=== PATIENT | female | born 1990 | race Caucasian/White ===

== ENCOUNTER 2018-02-26 13:28 | Emergency (ER) | payer OTHER ==
[~2018-02-26] VITALS: Ht 160 cm; Wt 63.5 kg
[2018-02-26 13:38] VITALS: Ht 160 cm; Wt 63.5 kg
[2018-02-26 14:24] LABS: BASOPHIL % 0.7 % (0-2); PLATELET COUNT 380 x10^3mcL (130-400)
[2018-02-26 14:25] LABS: RED CELL DISTRIBUTION WIDTH 18.6 % (11.5-14.5)
[2018-02-26 14:44] LABS: ALBUMIN 4.8 g/dL (3.4-5.0); ALKALINE PHOSPHATASE 64 U/L (46-116); ALT/SGPT 16 U/L (14-59); AST/SGOT 14 U/L (15-37); BILIRUBIN TOTAL 0.3 mg/dL (0.20-1.00); CALCIUM 9.2 mg/dL (8.5-10.1); CARBON DIOXIDE 26.6 mmol/L (21-32); CHLORIDE SERUM 103 mmol/L (98-107); CREATININE SERUM 0.7 mg/dL (0.6-1.0); GFR1 > 60 mL/min; GLUCOSE SERUM 80 mg/dL (74-106); LIPASE 133 IU/L (73-393); POTASSIUM SERUM 3.8 mmol/L (3.5-5.1); SODIUM SERUM 138 mmol/L (136-145)
[2018-02-26 14:47] LABS: UA SPECIFIC GRAVITY 1.025 (1.005-1.035); microscopic required? YES; urine erythrocyte NEGATIVE (NEGATIVE)
[2018-02-26 14:49] LABS: TOTAL PROTEIN, SERUM 8.7 g/dL (6.4-8.2)
[2018-02-26 16:02] VITALS: BP 129/86
== END 2018-02-26 16:02 | disposition home or self-care (01) ==
LOC: ED 13:28
PROVIDERS: Emergency Medicine
DX: K80.20 Calculus of gallbladder without cholecystitis without obstruction (principal); F17.210 Nicotine dependence, cigarettes, uncomplicated; I10 Essential (primary) hypertension; Z90.89 Acquired absence of other organs; Z71.6 Tobacco abuse counseling; Z98.890 Other specified postprocedural states
CPT/HCPCS: 99406; J2270; J2405

== ENCOUNTER 2018-03-07 19:03 | Emergency (ER) | payer OTHER ==
[~2018-03-07] VITALS: Ht 160 cm; Wt 64.9 kg
[2018-03-07 21:50] VITALS: BP 133/97
== END 2018-03-07 21:50 | disposition home or self-care (01) ==
LOC: ED 19:03
DX: K21.9 Gastro-esophageal reflux disease without esophagitis (principal); K80.50 Calculus of bile duct without cholangitis or cholecystitis without obstruction; I10 Essential (primary) hypertension; Z71.6 Tobacco abuse counseling; Z90.89 Acquired absence of other organs; Z98.890 Other specified postprocedural states
CPT/HCPCS: 99406; J3010; Q0162

== ENCOUNTER 2018-04-04 09:22 | Day surgery (SDC) | payer OTHER ==
[~2018-04-04] VITALS: Ht 160 cm; Wt 64.9 kg
[2018-04-04 09:53] VITALS: BP 131/81
[2018-04-04 16:27] VITALS: BP 135/87
== END 2018-04-04 16:20 | disposition home or self-care (01) ==
LOC: DS 09:22
DX: K80.10 Calculus of gallbladder with chronic cholecystitis without obstruction (principal); I10 Essential (primary) hypertension; E78.5 Hyperlipidemia, unspecified; F17.210 Nicotine dependence, cigarettes, uncomplicated; Z90.49 Acquired absence of other specified parts of digestive tract; Z98.890 Other specified postprocedural states; E05.80 Other thyrotoxicosis without thyrotoxic crisis or storm; Z79.82 Long term (current) use of aspirin; Z79.899 Other long term (current) drug therapy
CPT/HCPCS: J0330; J0690; J1170; J2250; J2405; J2704; J2710; J3010; J3490; J7030; J7120

== ENCOUNTER 2018-04-06 13:12 | Emergency (ER) | payer OTHER ==
[~2018-04-06] VITALS: Ht 160 cm; Wt 65.3 kg
[2018-04-06 13:24] VITALS: Ht 160 cm; Wt 65.3 kg
[2018-04-06 14:50] LABS: BASOPHIL % 0.2 % (0-2); PLATELET COUNT 370 x10^3mcL (130-400)
[2018-04-06 14:51] LABS: RED CELL DISTRIBUTION WIDTH 19.7 % (11.5-14.5)
[2018-04-06 15:00] LABS: microscopic required? NO
[2018-04-06 15:18] LABS: urine erythrocyte NEGATIVE (NEGATIVE)
[2018-04-06 15:19] LABS: ALBUMIN 3.7 g/dL (3.4-5.0); ALKALINE PHOSPHATASE 76 U/L (46-116); ALT/SGPT 179 U/L (14-59); AST/SGOT 134 U/L (15-37); BILIRUBIN TOTAL 0.2 mg/dL (0.20-1.00); CARBON DIOXIDE 29.1 mmol/L (21-32); CHLORIDE SERUM 102 mmol/L (98-107); CREATININE SERUM 0.6 mg/dL (0.6-1.0); GFR1 > 60 mL/min; GLUCOSE SERUM 98 mg/dL (74-106); LIPASE 62 IU/L (73-393); POTASSIUM SERUM 3.6 mmol/L (3.5-5.1); SODIUM SERUM 139 mmol/L (136-145); TOTAL PROTEIN, SERUM 7.7 g/dL (6.4-8.2)
[2018-04-06 15:31] LABS: CALCIUM 8.8 mg/dL (8.5-10.1)
[2018-04-06 16:33] VITALS: BP 120/82
== END 2018-04-06 16:33 | disposition home or self-care (01) ==
LOC: ED 13:12
PROVIDERS: Emergency Medicine
DX: G89.18 Other acute postprocedural pain (principal); I10 Essential (primary) hypertension; Z90.49 Acquired absence of other specified parts of digestive tract; Z90.89 Acquired absence of other organs; Z98.890 Other specified postprocedural states
CPT/HCPCS: J2270; J2405; J7030; Q0092

== ENCOUNTER 2018-04-30 20:41 | Emergency (ER) | payer OTHER ==
[~2018-04-30] VITALS: Ht 160 cm; Wt 64.0 kg
[2018-04-30 21:08] VITALS: Ht 160 cm; Wt 64.0 kg
[2018-05-01 00:49] LABS: CALCIUM 8.5 mg/dL (8.5-10.1); CHLORIDE SERUM 103 mmol/L (98-107); CREATININE SERUM 0.7 mg/dL (0.6-1.0); GFR1 > 60 mL/min; GLUCOSE SERUM 94 mg/dL (74-106); POTASSIUM SERUM 3.9 mmol/L (3.5-5.1); SODIUM SERUM 138 mmol/L (136-145)
[2018-05-01 00:53] LABS: ALKALINE PHOSPHATASE 71 U/L (46-116); ALT/SGPT 15 U/L (14-59); AMYLASE 47 U/L (25-115); AST/SGOT 13 U/L (15-37); BILIRUBIN TOTAL 0.17 mg/dL (0.20-1.00); LIPASE 224 IU/L (73-393); TOTAL PROTEIN, SERUM 8.1 g/dL (6.4-8.2)
[2018-05-01 00:57] LABS: BASOPHIL % 0.2 % (0-2)
[2018-05-01 00:59] LABS: PLATELET COUNT 522 x10^3mcL (130-400); RED CELL DISTRIBUTION WIDTH 19.1 % (11.5-14.5)
[2018-05-01 03:42] VITALS: BP 162/91
== END 2018-05-01 03:42 | disposition home or self-care (01) ==
LOC: ED 20:41
PROVIDERS: Emergency Medicine
DX: K42.9 Umbilical hernia without obstruction or gangrene (principal); D50.9 Iron deficiency anemia, unspecified; K21.9 Gastro-esophageal reflux disease without esophagitis; I10 Essential (primary) hypertension; Z90.89 Acquired absence of other organs; Z90.49 Acquired absence of other specified parts of digestive tract; Z98.890 Other specified postprocedural states
CPT/HCPCS: J1885; J2405; J3010; J7030

== ENCOUNTER 2018-08-19 19:51 | Emergency (ER) | payer OTHER ==
[~2018-08-19] VITALS: Ht 160 cm; Wt 62.6 kg
[2018-08-19 20:13] VITALS: Ht 160 cm; Wt 62.6 kg
[2018-08-19 21:19] LABS: PLATELET COUNT 382 x10^3mcL (130-400)
[2018-08-19 21:22] LABS: RED CELL DISTRIBUTION WIDTH 18.2 % (11.5-14.5)
[2018-08-19 21:26] LABS: CARBON DIOXIDE 23.7 mmol/L (21-32); CHLORIDE SERUM 101 mmol/L (98-107); CREATININE SERUM 0.7 mg/dL (0.6-1.0); GFR1 > 60 mL/min; GLUCOSE SERUM 106 mg/dL (74-106); POTASSIUM SERUM 3.6 mmol/L (3.5-5.1); SODIUM SERUM 138 mmol/L (136-145)
[2018-08-19 21:30] LABS: ALBUMIN 4.9 g/dL (3.4-5.0); ALKALINE PHOSPHATASE 67 U/L (46-116); ALT/SGPT 18 U/L (14-59); AST/SGOT 16 U/L (15-37); BILIRUBIN TOTAL 0.3 mg/dL (0.20-1.00); LIPASE 130 IU/L (73-393)
[2018-08-19 21:31] LABS: TOTAL PROTEIN, SERUM 9.2 g/dL (6.4-8.2)
[2018-08-19 21:42] LABS: BAND NEUTROPHIL 0 % (0-10); BASOPHIL 0 % (0-2); MONOCYTE 2 % (0-7); SEGMENTED NEUTROPHILS 56 % (37-75); rbc morphology (normal/abnorm) ABNORMAL (NORMAL)
[2018-08-19 21:43] LABS: PLATELET MORPHOLOGY PLATELETS NORMAL
[2018-08-20 00:57] VITALS: BP 137/93
== END 2018-08-20 00:57 | disposition home or self-care (01) ==
LOC: ED 19:51
PROVIDERS: Emergency Medicine
DX: K29.70 Gastritis, unspecified, without bleeding (principal); M54.9 Dorsalgia, unspecified; R11.10 Vomiting, unspecified; I10 Essential (primary) hypertension; Z90.89 Acquired absence of other organs; Z90.49 Acquired absence of other specified parts of digestive tract
CPT/HCPCS: J2270; J2405; J3010; J3490; J7030; Q0092

== ENCOUNTER 2018-10-17 16:37 | Emergency (ER) | payer OTHER ==
[~2018-10-17] VITALS: Ht 160 cm; Wt 64.0 kg
[2018-10-17 16:42] VITALS: Ht 160 cm; Wt 64.0 kg
[2018-10-17 17:43] LABS: PLATELET COUNT 569 x10^3mcL (130-400); RED CELL DISTRIBUTION WIDTH 19.9 % (11.5-14.5)
[2018-10-17 17:47] LABS: CALCIUM 9.4 mg/dL (8.5-10.1); CARBON DIOXIDE 23.1 mmol/L (21-32); CHLORIDE SERUM 104 mmol/L (98-107); CREATININE SERUM 0.7 mg/dL (0.6-1.0); GFR1 > 60 mL/min; GLUCOSE SERUM 103 mg/dL (74-106); POTASSIUM SERUM 3.4 mmol/L (3.5-5.1); SODIUM SERUM 141 mmol/L (136-145)
[2018-10-17 17:51] LABS: ALKALINE PHOSPHATASE 63 U/L (46-116); ALT/SGPT 16 U/L (14-59); AMYLASE 25 U/L (25-115); AST/SGOT 11 U/L (15-37); BILIRUBIN TOTAL 0.29 mg/dL (0.20-1.00); LIPASE 45 IU/L (73-393); TOTAL PROTEIN, SERUM 8.2 g/dL (6.4-8.2)
[2018-10-17 18:18] VITALS: BP 153/97
[2018-10-17 19:15] LABS: BAND NEUTROPHIL 0 % (0-10); BASOPHIL 0 % (0-2); MONOCYTE 1 % (0-7); SEGMENTED NEUTROPHILS 79 % (37-75)
[2018-10-17 19:16] LABS: rbc morphology (normal/abnorm) ABNORMAL (NORMAL)
[2018-10-17 19:17] LABS: PLATELET MORPHOLOGY PLATELETS INCREASED
== END 2018-10-17 18:18 | disposition home or self-care (01) ==
LOC: ED 16:37
PROVIDERS: Emergency Medicine
DX: K21.9 Gastro-esophageal reflux disease without esophagitis (principal); Z90.49 Acquired absence of other specified parts of digestive tract; Z90.89 Acquired absence of other organs; Z98.890 Other specified postprocedural states
CPT/HCPCS: C9113; J2405; J3490; J7030

== ENCOUNTER 2018-12-18 05:56 | Emergency (ER) | payer OTHER ==
[~2018-12-18] VITALS: Ht 160 cm; Wt 64.0 kg
[2018-12-18 08:00] LABS: RED CELL DISTRIBUTION WIDTH 19.8 % (11.5-14.5)
[2018-12-18 08:01] LABS: PLATELET COUNT 548 x10^3mcL (130-400)
[2018-12-18 08:03] LABS: CALCIUM 9.4 mg/dL (8.5-10.1); CARBON DIOXIDE 23.1 mmol/L (21-32); CHLORIDE SERUM 99 mmol/L (98-107); CREATININE SERUM 0.7 mg/dL (0.6-1.0); GFR1 > 60 mL/min; GLUCOSE SERUM 93 mg/dL (74-106); POTASSIUM SERUM 3.1 mmol/L (3.5-5.1); SODIUM SERUM 139 mmol/L (136-145)
[2018-12-18 08:08] LABS: ALBUMIN 4.7 g/dL (3.4-5.0); ALKALINE PHOSPHATASE 84 U/L (46-116); ALT/SGPT 24 U/L (14-59); AST/SGOT 14 U/L (15-37); BILIRUBIN TOTAL 0.4 mg/dL (0.20-1.00); LIPASE 121 IU/L (73-393)
[2018-12-18 08:09] LABS: TOTAL PROTEIN, SERUM 9.5 g/dL (6.4-8.2)
[2018-12-18 10:08] LABS: microscopic required? YES; urine erythrocyte 1+ (NEGATIVE)
[2018-12-18 10:27] LABS: AMPHETAMINE QUAL UR NONE DETECTED (See below)
[2018-12-18 10:40] VITALS: BP 160/100
[2018-12-18 11:39] LABS: MONOCYTE 1 % (0-7); SEGMENTED NEUTROPHILS 87 % (37-75)
[2018-12-18 12:07] LABS: rbc morphology (normal/abnorm) ABNORMAL (NORMAL)
== END 2018-12-18 10:40 | disposition left against medical advice (07) ==
LOC: ED 05:56
PROVIDERS: Emergency Medicine
DX: N83.201 Unspecified ovarian cyst, right side (principal); I10 Essential (primary) hypertension; E05.90 Thyrotoxicosis, unspecified without thyrotoxic crisis or storm; Z90.89 Acquired absence of other organs
CPT/HCPCS: 87046; 87046-59; J1885; J2405; J3010; J7030

== ENCOUNTER 2019-12-25 16:43 | Emergency (ER) | payer OTHER ==
[~2019-12-25] VITALS: Ht 160 cm; Wt 63.5 kg
[2019-12-25 16:52] VITALS: BP 150/103; Ht 160 cm; Wt 63.5 kg
[2019-12-25 18:18] LABS: BASOPHIL % 0.2 % (0-2); PLATELET COUNT 344 x10^3mcL (130-400)
[2019-12-25 18:21] LABS: RED CELL DISTRIBUTION WIDTH 17.8 % (11.5-14.5)
[2019-12-25 18:29] LABS: CALCIUM 9.8 mg/dL (8.5-10.1); CARBON DIOXIDE 19.9 mmol/L (21-32); CHLORIDE SERUM 107 mmol/L (98-107); CREATININE SERUM 0.8 mg/dL (0.6-1.0); GFR1 > 60 mL/min; GLUCOSE SERUM 122 mg/dL (74-106); POTASSIUM SERUM 3.6 mmol/L (3.5-5.1); SODIUM SERUM 143 mmol/L (136-145)
[2019-12-25 18:34] LABS: ALBUMIN 4.8 g/dL (3.4-5.0); ALKALINE PHOSPHATASE 78 U/L (46-116); ALT/SGPT 24 U/L (14-59); AST/SGOT 14 U/L (15-37); BILIRUBIN TOTAL 0.45 mg/dL (0.20-1.00); LIPASE 94 IU/L (73-393); TOTAL PROTEIN, SERUM 9.2 g/dL (6.4-8.2)
[2019-12-25 18:39] LABS: UA SPECIFIC GRAVITY >=1.030 (1.005-1.035); microscopic required? YES; urine erythrocyte 2+ (NEGATIVE)
== END 2019-12-25 19:17 | disposition home or self-care (01) ==
LOC: ED 16:43
PROVIDERS: Emergency Medicine
DX: N39.0 Urinary tract infection, site not specified (principal); I10 Essential (primary) hypertension; E05.90 Thyrotoxicosis, unspecified without thyrotoxic crisis or storm; Z90.89 Acquired absence of other organs; Z87.442 Personal history of urinary calculi
CPT/HCPCS: J2405; J3010; J7030

== ENCOUNTER 2020-04-16 11:00 | Emergency (ER) | payer OTHER ==
[~2020-04-16] VITALS: Ht 160 cm; Wt 71.2 kg
[2020-04-16 11:05] VITALS: Ht 160 cm; Wt 71.2 kg
[2020-04-16] MEDS ORDERED: NORCO1 TA2 PO (13:02)
[2020-04-16 13:26] VITALS: BP 132/97
== END 2020-04-16 13:27 | disposition home or self-care (01) ==
LOC: ED 11:00
DX: S19.9XXA Unspecified injury of neck, initial encounter (principal); S09.8XXA Other specified injuries of head, initial encounter; S49.92XA Unspecified injury of left shoulder and upper arm, initial encounter; S89.91XA Unspecified injury of right lower leg, initial encounter; I10 Essential (primary) hypertension; E05.90 Thyrotoxicosis, unspecified without thyrotoxic crisis or storm; Z98.890 Other specified postprocedural states; Z87.442 Personal history of urinary calculi; V49.9XXA Car occupant (driver) (passenger) injured in unspecified traffic accident, initial encounter; Y93.I9 Activity, other involving external motion; Y92.413 State road as the place of occurrence of the external cause; Y99.8 Other external cause status